=== PATIENT | female | born 1970 | race Caucasian/White ===

== ENCOUNTER 2016-07-17 19:28 | Emergency (ER) | payer OTHER ==
[~2016-07-17] VITALS: Ht 172.7 cm; Wt 67.0 kg
[~2016-07-17 19:28] MED LIST: ARMOUR THYROID30 MG PO; DAILY VALUE1 EACH PO; LEVOTHYROXINE88 MCG PO
[2016-07-17 21:01] VITALS: BP 131/85
== END 2016-07-17 21:01 | disposition home or self-care (01) ==
LOC: EME 19:28
DX: S00.83XA Contusion of other part of head, initial encounter (principal); W01.198A Fall on same level from slipping, tripping and stumbling with subsequent striking against other object, initial encounter; Y92.009 Unspecified place in unspecified non-institutional (private) residence as the place of occurrence of the external cause; Z91.040 Latex allergy status; Z88.6 Allergy status to analgesic agent
CPT/HCPCS: 99281; 99283